=== PATIENT | female | born 1965 | race Caucasian/White ===

== ENCOUNTER → 2018-01-10 | Outpatient (CLI) | payer BC ==
[2018-01-10 17:32] LABS: T4, Free (Free Thyroxine) 1.06 ng/dL (0.78-2.19)
--- NOTE | 2018-01-10 17:45 | US ---
EXAMINATION TYPE: US thyroid st tissue head/neck DATE OF EXAM: 01/10/2018 COMPARISON: NONE CLINICAL HISTORY: E04.9 enlarged thyroid. Enlarged thyroid per doctor. GLAND SIZE: Right Lobe: 5.1 x 2.7 x 2.6 cm Overall Parenchyma: heterogenous Left Lobe: 5.1 x 1.3 x 2.0 cm Overall Parenchyma: homogeneous Isthmus Thickness: 0.6 cm NODULES RIGHT: # of nodules measured on right: 0 LEFT: # of nodules measured on left: 3 1. 0.8 X 0.6 x 0.5 cm hypoechoic solid nodule at the lower pole with well-defined margins. This no dule is taller than wide and shows intranodular vascularity. Prior size: No prior 2. 1.0 X 1.0 x 0.6 cm mixed nodule at the lower pole with well-defined margins. This nodule is tall er than wide and shows no intranodular vascularity. Prior size: No prior 3. 0.9 X 0.6 x 0.5 cm hypoechoic solid nodule at the mid pole with well-defined margins. This nodul e is taller than wide and shows no intranodular vascularity. Prior size: No prior ISTHMUS: # of nodules measured in the isthmus: 0 Bilateral neck scanned, no evidence of lymphadenopathy. Bilateral enlarged thyroid lobes. IMPRESSION: There are several nodules in the left thyroid lobe. No dominant thyroid mass. I have a low suspicion of malignancy.
== END | disposition home or self-care (01) ==
LOC: RADUSWWP 16:16
PROVIDERS: ATTEND Obstetrics & Gynecology
DX: E04.2 Nontoxic multinodular goiter (principal); E04.9 Nontoxic goiter, unspecified
CPT/HCPCS: 36415; 76536; 84439; 84443; 84479

== ENCOUNTER → 2018-10-26 | Outpatient (CLI) | payer BC ==
--- NOTE | 2018-10-27 14:46 | US ---
EXAMINATION TYPE: US thyroid st tissue head/neck DATE OF EXAM: 10/26/2018 COMPARISON: 01/10/2018 ultrasound thyroid CLINICAL HISTORY: E04.1 Thyroid Nodule. Follow up thyroid nodules GLAND SIZE: Right Lobe: 5.9 x 1.8 x 2.5 cm Overall Parenchyma: heterogenous Left Lobe: 5.7 x 1.5 x 2.1 cm Overall Parenchyma: heterogeneous Isthmus Thickness: 0.6 cm NODULES RIGHT: # of nodules measured on right: 1 1. 1.2 X 0.5 x 1.3 cm hypoechoic mixed nodule at the upper pole with well-defined margins. This nod ule is wider than tall and shows intranodular vascularity. Prior size: no previous LEFT: # of nodules measured on left: 3 1. 1.4 X 0.8 x 1.0 cm hypoechoic solid nodule at the lower pole with well-defined margins. This nod ule is wider than tall and shows intranodular vascularity. Prior size: 0.8 x 0.6 x 0.5 cm 2. 1.2 X 0.6 x 1.1 cm hypoechoic mixed nodule at the lower pole with well-defined margins. This nodu le is wider than tall and shows intranodular vascularity. Prior size: 1.0 x 1.0 x 0.6 cm 3. 0.9 X 0.5 x 0.7 cm hypoechoic solid nodule at the mid pole with well-defined margins. This nodule is wider than tall and shows intranodular vascularity. Prior size: 0.9 x 0.6 x 0.5 cm ISTHMUS: # of nodules measured in the isthmus: 0 Bilateral neck scanned, no evidence of lymphadenopathy. Enlarged heterogeneous gland with multiple bilateral nodules described above. IMPRESSION: 1. No identification of a 1.2 x 0.5 x 1.3 cm hypoechoic nodule right lobe thyroid. 2. Enlargement of the left lobe thyroid nodule lower pole. 3. Consider correlation with nuclear medicine thyroid scan.
== END | disposition home or self-care (01) ==
LOC: RADUSWWP 16:18
PROVIDERS: ATTEND Otolaryngology
DX: E04.1 Nontoxic single thyroid nodule (principal)
CPT/HCPCS: 76536

== ENCOUNTER 2018-11-19 11:59 | Observation (INO) | payer BC ==
[2018-11-19 12:05] VITALS: RESP 18
--- NOTE | 2018-11-19 12:32 | ED ---
General Adult HPI - General Chief complaint: Chest Pain Stated complaint: Chest pain Time Seen by Provider: 11/19/18 12:06 Source: patient, RN notes reviewed, old records reviewed Mode of arrival: wheelchair Limitations: no limitations - History of Present Illness Initial comments: 53-year-old female presenting for evaluation of left-sided chest pain. Patient's symptoms began 2 days prior, began as indigestion, epigastric pain, progressed to left-sided chest pain with radiation to the jaw. Patient denies significant dyspnea. Denies cough or fever. Patient has no known history of CAD, she does have family history of CAD. She is a current smoker. No history of diabetes or hypertension. - Related Data Home Medications Medication Instructions Recorded Confirmed Aspirin/Acetaminophen/Caffeine 1 tab PO BID PRN 11/19/18 11/19/18 [Excedrin Migraine Caplet] Allergies Allergy/AdvReac Type Severity Reaction Status Date / Time codeine AdvReac Nausea Verified 11/19/18 12:47 Review of Systems ROS Statement: Those systems with pertinent positive or pertinent negative responses have been documented in the HPI. ROS Other: All systems not noted in ROS Statement are negative. Past Medical History Past Medical History: No Reported History Additional Past Medical History / Comment(s): kidney stones History of Any Multi-Drug Resistant Organisms: None Reported Past Surgical History: Appendectomy, Breast Surgery Additional Past Surgical History / Comment(s): breast reduction Past Anesthesia/Blood Transfusion Reactions: No Reported Reaction Past Psychological History: No Psychological Hx Reported Smoking Status: Current every day smoker Past Alcohol Use History: Rare Past Drug Use History: None Reported - Past Family History Father Family Medical History: Respiratory Disorder Additional Family Medical History / Comment(s): pulmonary fibrosis Mother Family Medical History: Coronary Artery Disease (CAD) Additional Family Medical History / Comment(s): CABG 2 vessel General Exam Limitations: no limitations General appearance: alert, in no apparent distress Head exam: Present: atraumatic, normocephalic Eye exam: Present: normal appearance, PERRL ENT exam: Present: normal exam Neck exam: Present: normal inspection Respiratory exam: Present: normal lung sounds bilaterally. Absent: respiratory distress Cardiovascular Exam: Present: regular rate, normal rhythm GI/Abdominal exam: Present: soft. Absent: distended, tenderness, guarding Back exam: Present: normal inspection Neurological exam: Present: alert, oriented X3, CN II-XII intact. Absent: motor sensory deficit Psychiatric exam: Present: normal affect, normal mood Skin exam: Present: warm, dry, intact. Absent: cyanosis, diaphoretic Course Vital Signs 11/19/18 12:02 Temperature 97.9 F Pulse Rate 81 Respiratory 18 Rate Blood Pressure 151/75 O2 Sat by Pulse 97 Oximetry EKG Findings - EKG Comments: EKG Findings:: EKG: Normal sinus rhythm, rate of 82, WA interval 128, QRS duration 90, QTC 446, no ST segment changes Medical Decision Making - Medical Decision Making 53-year-old female presenting for evaluation of chest pain. EKG negative for ST segment elevation, no definitive signs of acute ischemia. Chest x-ray negative for cardiopulmonary disease. Normal CBC, normal CMP, d-dimer negative, initial troponin negative. Will be kept in observation for stroke cardiac enzymes, telemetry, and cardiology consultation. Case discussed with admitting physician, will accept. - Lab Data Result diagrams: 11/19/18 12:22 11/19/18 12:22 Lab Results 11/19/18 11/19/18 11/19/18 Range/Units 12:22 12:22 12:22 WBC 9.1 (3.8-10.6) k/uL RBC 5.05 (3.80-5.40) m/uL Hgb 14.8 (11.4-16.0) gm/dL Hct 45.5 (34.0-46.0) % MCV 90.2 (80.0-100.0) fL MCH 29.4 (25.0-35.0) pg MCHC 32.6 (31.0-37.0) g/dL RDW 13.5 (11.5-15.5) % Plt Count 252 (150-450) k/uL Neutrophils % 63 % Lymphocytes % 28 % Monocytes % 4 % Eosinophils % 3 % Basophils % 1 % Neutrophils # 5.7 (1.3-7.7) k/uL Lymphocytes # 2.5 (1.0-4.8) k/uL Monocytes # 0.4 (0-1.0) k/uL Eosinophils # 0.2 (0-0.7) k/uL Basophils # 0.1 (0-0.2) k/uL PT 10.0 (9.0-12.0) sec INR 0.9 (<1.2) APTT 25.0 (22.0-30.0) sec D-Dimer 0.31 (<0.60) mg/L FEU Sodium 141 (137-145) mmol/L Potassium 4.3 (3.5-5.1) mmol/L Chloride 107 (98-107) mmol/L Carbon Dioxide 25 (22-30) mmol/L Anion Gap 9 mmol/L BUN 19 H (7-17) mg/dL Creatinine 0.71 (0.52-1.04) mg/dL Est GFR (CKD-EPI)AfAm >90 (>60 ml/min/1.73 sqM) Est GFR (CKD-EPI)NonAf >90 (>60 ml/min/1.73 sqM) Glucose 103 H (74-99) mg/dL Calcium 10.5 H (8.4-10.2) mg/dL Magnesium 2.0 (1.6-2.3) mg/dL Total Bilirubin 0.6 (0.2-1.3) mg/dL AST 26 (14-36) U/L ALT 36 (9-52) U/L Alkaline Phosphatase 116 (38-126) U/L Troponin I (0.000-0.034) ng/mL NT-Pro-B Natriuret Pep pg/mL Total Protein 7.7 (6.3-8.2) g/dL Albumin 4.8 (3.5-5.0) g/dL Lipase 203 (23-300) U/L 11/19/18 11/19/18 Range/Units 12:22 12:22 WBC (3.8-10.6) k/uL RBC (3.80-5.40) m/uL Hgb (11.4-16.0) gm/dL Hct (34.0-46.0) % MCV (80.0-100.0) fL MCH (25.0-35.0) pg MCHC (31.0-37.0) g/dL RDW (11.5-15.5) % Plt Count (150-450) k/uL Neutrophils % % Lymphocytes % % Monocytes % % Eosinophils % % Basophils % % Neutrophils # (1.3-7.7) k/uL Lymphocytes # (1.0-4.8) k/uL Monocytes # (0-1.0) k/uL Eosinophils # (0-0.7) k/uL Basophils # (0-0.2) k/uL PT (9.0-12.0) sec INR (<1.2) APTT (22.0-30.0) sec D-Dimer (<0.60) mg/L FEU Sodium (137-145) mmol/L Potassium (3.5-5.1) mmol/L Chloride (98-107) mmol/L Carbon Dioxide (22-30) mmol/L Anion Gap mmol/L BUN (7-17) mg/dL Creatinine (0.52-1.04) mg/dL Est GFR (CKD-EPI)AfAm (>60 ml/min/1.73 sqM) Est GFR (CKD-EPI)NonAf (>60 ml/min/1.73 sqM) Glucose (74-99) mg/dL Calcium (8.4-10.2) mg/dL Magnesium (1.6-2.3) mg/dL Total Bilirubin (0.2-1.3) mg/dL AST (14-36) U/L ALT (9-52) U/L Alkaline Phosphatase (38-126) U/L Troponin I <0.012 (0.000-0.034) ng/mL NT-Pro-B Natriuret Pep 17 pg/mL Total Protein (6.3-8.2) g/dL Albumin (3.5-5.0) g/dL Lipase (23-300) U/L Disposition Clinical Impression: Chest pain Disposition: ADMITTED IP TO THIS [facility] Condition: Stable Is patient prescribed a controlled substance at d/c from ED?: No Referrals: None,Stated [Primary Care Provider] - 1-2 days Decision to Admit Reason: Admit from EC Decision Date: 11/19/18 Decision Time: 14:20
[2018-11-19 12:41] LABS: Basophils # (A) 0.1 k/uL (0-0.2); Basophils % (A) 1 %; Eosinophils # (A) 0.2 k/uL (0-0.7); Eosinophils % (A) 3 %; HCT 45.5 % (34.0-46.0); HGB 14.8 gm/dL (11.4-16.0); Lymphocytes # (A) 2.5 k/uL (1.0-4.8); Lymphocytes % (A) 28 %; MCH 29.4 pg (25.0-35.0); MCHC 32.6 g/dL (31.0-37.0); MCV 90.2 fL (80.0-100.0); Mean Platelet Volume 8.3; Monocytes # (A) 0.4 k/uL (0-1.0); Monocytes % (A) 4 %; Neutrophils # (A) 5.7 k/uL (1.3-7.7); Neutrophils % (A) 63 %; Platelet Count 252 k/uL (150-450); RBC 5.05 m/uL (3.80-5.40); RDW 13.5 % (11.5-15.5); WBC 9.1 k/uL (3.8-10.6)
[2018-11-19 12:51] LABS: ALT 36 U/L (9-52); AST 26 U/L (14-36); Albumin 4.8 g/dL (3.5-5.0); Alkaline Phosphatase 116 U/L (38-126); Anion Gap 9 mmol/L; Blood Urea Nitrogen 19 mg/dL (7-17); Calcium 10.5 mg/dL (8.4-10.2); Carbon Dioxide 25 mmol/L (22-30); Chloride 107 mmol/L (98-107); Glucose 103 mg/dL (74-99); Lipase 203 U/L (23-300); Potassium 4.3 mmol/L (3.5-5.1); Sodium 141 mmol/L (137-145); Total Bilirubin 0.6 mg/dL (0.2-1.3); Total Protein 7.7 g/dL (6.3-8.2)
[2018-11-19 12:56] LABS: D-Dimer 0.31 mg/L FEU (<0.60); INR 0.9 (<1.2)
--- NOTE | 2018-11-19 13:22 | XR ---
EXAMINATION TYPE: XR chest 2V DATE OF EXAM: 11/19/2018 COMPARISON: Chest x-ray 04/16/2015 HISTORY: Chest pain TECHNIQUE: Frontal and lateral views of the chest are obtained. FINDINGS: There are cardiac leads. There is no focal air space opacity, pleural effusion, or pneumoth orax seen. The cardiac silhouette size is within normal limits. The osseous structures are intact. IMPRESSION: No acute cardiopulmonary process.
[2018-11-19] MEDS ORDERED: ASPIRIN 325 MG TAB PO STA (13:30)
[2018-11-19] MEDS ORDERED: FAMOTIDINE 20 MG/2 ML VIAL IV STA (13:30)
[2018-11-19] MEDS ORDERED: ACETAMINOPHEN TAB 325 MG TAB PO PRN (14:16)
[2018-11-19] MEDS ORDERED: NALOXONE 0.4 MG/ML 1 ML VIAL IV PRN (14:16)
[2018-11-19] MEDS ORDERED: ONDANSETRON 4 MG/2 ML VIAL IVP PRN (14:16)
[2018-11-19] MEDS ORDERED: IBUPROFEN 400 MG TAB PO PRN (14:16)
[2018-11-19 15:44] VITALS: BMI 30.1
[2018-11-19] MEDS: SODIUM CHLORIDE 0.9% 1,000 ML IV SCH (17:11)
--- NOTE | 2018-11-19 23:39 | P.HPIM ---
History of Present Illness H&P Date: 11/19/18 Chief Complaint: Chest pain Patient is a 53-year-old female with a known history of renal stones, nicotine addiction came to ER with complaints of chest pain and heartburn on Tuesday night about 2 days back acidosis with nausea and since then patient has been having on and off chest pain lasting few minutes. Today morning when she woke up she felt chest pressure, pain and jaw pain when she woke up in the morning today. Pain is associated with some shortness of breath. Patient today about 6 Tums seems to relieve her pain. Otherwise patient denied any recent illnesses. No cough or sputum production. No nausea vomiting or abdominal pain. No headache or dizziness or lightheadedness. Patient does smoke 1 pack per day. Mother has history of coronary artery bypass graft. Patient does take Excedrin for headache every other day. EKG showed normal sinus rhythm Chest x-ray showed no acute cardio pulmonary process Troponin 1 negative Patient says that she had negative stress test in 2014 Review of Systems Constitutional: Patient denies any fever or chills . No generalized weakness or weight loss. Abdomen: Patient denied nausea vomiting and diarrhea and abdominal pain. Cardiovascular: Patient does have chest pain with mild shortness of breath. No leg swelling. Respiratory: patient denied any cough is from production. No shortness of breath Neurologic: Patient denied any numbness or tingling headache. Musculoskeletal: Patient denies any complaints of joint swelling or deformity. Skin: Negative Psychiatric: Negative Endocrine: No heat or cold intolerance. No recent weight gain. Genitourinary: No dysuria or hematuria. All other 14 point ROS negative except the above Past Medical History Past Medical History: No Reported History Additional Past Medical History / Comment(s): kidney stones History of Any Multi-Drug Resistant Organisms: None Reported Past Surgical History: Appendectomy, Breast Surgery Additional Past Surgical History / Comment(s): breast reduction Past Anesthesia/Blood Transfusion Reactions: No Reported Reaction Past Psychological History: No Psychological Hx Reported Smoking Status: Current every day smoker Past Alcohol Use History: Rare Past Drug Use History: None Reported - Past Family History Father Family Medical History: Respiratory Disorder Additional Family Medical History / Comment(s): pulmonary fibrosis Mother Family Medical History: Coronary Artery Disease (CAD) Additional Family Medical History / Comment(s): CABG 2 vessel Medications and Allergies Home Medications Medication Instructions Recorded Confirmed Type Aspirin/Acetaminophen/Caffeine 1 tab PO BID PRN 11/19/18 11/19/18 History [Excedrin Migraine Caplet] Allergies Allergy/AdvReac Type Severity Reaction Status Date / Time codeine AdvReac Nausea Verified 11/19/18 12:47 Physical Exam Vitals: Vital Signs Temp Pulse Pulse Resp BP BP Pulse Ox 11/19/18 15:53 18 11/19/18 15:20 97.8 F 78 16 146/76 95 11/19/18 15:07 97.9 F 81 18 148/83 97 11/19/18 12:02 97.9 F 81 18 151/75 97 Intake and Output 11/19/18 11/19/18 11/19/18 06:59 14:59 22:59 Other: Voiding Method Toilet Weight 92.533 kg PHYSICAL EXAMINATION: Patient is lying in the bed comfortably, no acute distress, awake alert and oriented.. HEENT: Normocephalic. Neck is supple. Pupils reactive. Nostrils clear. Oral cavity is moist. Ears reveal no drainage. Neck reveals no JVD, carotid bruits, or thyromegaly. CHEST EXAMINATION: Trachea is central. Symmetrical expansion. Lung thompson clear to auscultation and percussion. CARDIAC: Normal S1, S2 with no gallops. No murmurs ABDOMEN: Soft. Bowel sounds normal. No organomegaly. No abdominal bruits. Extremities: reveal no edema. No clubbing or cyanosis Neurologically awake, alert, oriented x3 with well-coordinated movements. No focal deficits noted Skin: No rash or skin lesions. Psychiatric: Coperative. Nonsuicidal Musculoskeletal: No joint swelling or deformity. Normal range of motion. Results CBC & Chem 7: 11/19/18 12:22 11/19/18 12:22 Labs: Abnormal Lab Results - Last 24 Hours (Table) 11/19/18 Range/Units 12:22 BUN 19 H (7-17) mg/dL Glucose 103 H (74-99) mg/dL Calcium 10.5 H (8.4-10.2) mg/dL Thrombosis Risk Factor Assmnt - DVT/VTE Prophylaxis DVT/VTE Prophylaxis: Pharmacologic Prophylaxis ordered - Choose All That Apply Any of the Below Risk Factors Present?: Yes Each Factor Represents 1 point: Age 41-60 years, Obesity (BMI >25) Other Risk Factors: No Other congenital or acquired thrombophilia - If yes, enter type in comment: No Thrombosis Risk Factor Assessment Total Risk Factor Score: 2 Thrombosis Risk Factor Assessment Level: Low Risk Assessment and Plan Assessment: Atypical chest pain. Rule out acute kidney syndrome. Pain likely GI related. Nicotine addiction History of renal stones History of breast reduction surgery and Appendectomy DVT prophylaxis Plan: Patient will be continued on telemetry monitoring. Initial EKG and troponin neg ative. Will hold NSAID's. Patient was started on Protonix. Cardiology was consulted. Further recommendations based on the clinical course. Smoking cessation has been counseled extensively. Time with Patient: Greater than 30
--- NOTE | 2018-11-20 07:49 | CONS ---
CONSULTATION Mrs. Beard is a 53-year-old female with no prior documented history of coronary artery disease who presented with symptoms of chest discomfort. She has been having discomfort on and off for the last couple days. Subsequently yesterday started to have jaw discomfort and because of that came into the emergency room. The discomfort in the jaw woke her up from sleep. She took some antacid with some improvement. She has no clear change in her pattern, although she has history of chronic dyspnea on exertion related to her chronic tobacco use. She has no PND, orthopnea, or peripheral edema. No dizziness, palpitation, or syncope. She was in the hospital in 2014 and had no evidence of ischemia by stress echocardiogram. She has no recent cardiac workup since. She has a history of chronic tobacco use. She is nondiabetic, not hypertensive. MEDICATIONS: Her medications at home include Excedrin. REVIEW OF SYSTEMS: RESPIRATORY SYSTEM: She has chronic dyspnea on exertion related to her chronic tobacco use. GI SYSTEM: No recent GI bleeding. No peptic ulcer disease. SYSTEM: No dysuria or hematuria. NERVOUS SYSTEM: No stroke or seizure. PHYSICAL EXAMINATION: She is a 53-year-old female, alert, oriented, in no apparent distress. Blood pressure 119/75 with the heart rate in the 70s. HEAD: Normocephalic. EYES: Sclerae anicteric. NECK: Good upstroke. No bruit. No jugular venous distention. LUNGS: Clear to auscultation. HEART: Regular rate and rhythm. S1, S2. No S3. No S4. No murmur or rub. ABDOMEN: Soft, nontender. Positive bowel sounds. No organomegaly. EXTREMITIES: No edema. Intact distal pulses. LAB DATA: Lab data revealed troponin less than 0.012 for 3 samples. BUN and creatinine 19 and 0.71. Hemoglobin of 14.8. EKG reveals sinus mechanism, normal axis and intervals with poor R-wave progression. No acute ST-segment changes. Chest x-ray shows no acute infiltrate. IMPRESSION: 1. Chest discomfort has atypical features for ischemic heart disease probably noncardiac. 2. Chronic tobacco use. RECOMMENDATION: In view of her presentation history, I recommend proceeding with a stress echocardiogram to assess her status and guide her treatment. The rationale behind the plan and the importance of smoking cessation was discussed with the patient who is in full understanding and agreement. Thank you for this consult. We will follow with you. MMODL / IJN: [id number] /
[2018-11-20 08:52] LABS: Anion Gap 6 mmol/L; Blood Urea Nitrogen 14 mg/dL (7-17); Calcium 9.5 mg/dL (8.4-10.2); Carbon Dioxide 26 mmol/L (22-30); Chloride 109 mmol/L (98-107); Glucose 97 mg/dL (74-99); Potassium 4.4 mmol/L (3.5-5.1); Sodium 141 mmol/L (137-145)
[2018-11-20] MEDS ORDERED: NICOTINE 14MG/24HR PATCH TRANSDERM SCH (09:00)
[2018-11-20] MEDS ORDERED: PANTOPRAZOLE 40 MG/10 ML VIAL IV SCH (09:00)
--- NOTE | 2018-11-20 10:40 | ECHOF ---
Referral Reason:cp MEASUREMENTS -------- HEIGHT: 175.3 cm WEIGHT: 92.5 kg BP: 108/69 RVIDd: 2.6 cm (< 3.3) IVSd: 1.2 cm (0.6 - 1.1) LVIDd: 3.8 cm (3.9 - 5.3) LVPWd: 1.1 cm (0.6 - 1.1) IVSs: 1.3 cm LVIDs: 2.7 cm LVPWs: 1.3 cm LA Diam: 3.0 cm (2.7 - 3.8) LAESV Index (A-L): 19.90 ml/m Ao Diam: 2.9 cm (2.0 - 3.7) AV Cusp: 1.9 cm (1.5 - 2.6) MV EXCURSION: 12.148 mm (> 18.000) MV EF SLOPE: 60 mm/s (70 - 150) EPSS: 0.3 cm MV E Jeremy: 0.95 m/s MV DecT: 249 ms MV A Jeremy: 0.92 m/s MV E/A Ratio: 1.03 FINDINGS -------- Sinus rhythm. This was a technically good study. The left ventricular size is normal. There is borderline concentric left ventricular hypertrophy. Overall left ventricular systolic function is normal with, an EF between 55 - 60 %. The diastolic filling pattern is normal for the age of the patient 9.64. The right ventricle is normal in size. Normal LA size by volume 22+/-6 ml/m2. The right atrial size is normal. The aortic valve is trileaflet, and appears structurally normal. No aortic stenosis or regurgitation. The mitral valve is normal. There is trace mitral regurgitation. The tricuspid valve appears structurally normal. Trace tricuspid regurgitation present. Trace/mild (physiologic) pulmonic regurgitation. The aortic root size is normal. Normal inferior vena cava with normal inspiratory collapse consistent with estimated right atrial pre ssure of 5 mmHg. There is no pericardial effusion. CONCLUSIONS -------- 1. Sinus rhythm. 2. This was a technically good study. 3. The left ventricular size is normal. 4. There is borderline concentric left ventricular hypertrophy. 5. Overall left ventricular systolic function is normal with, an EF between 55 - 60 %. 6. Normal LA size by volume 22+/-6 ml/m2. 7. The aortic valve is trileaflet, and appears structurally normal. No aortic stenosis or regurgitati on. 8. There is trace mitral regurgitation. 9. The tricuspid valve appears structurally normal. 10. Trace tricuspid regurgitation present. 11. Trace/mild (physiologic) pulmonic regurgitation. 12. The aortic root size is normal. 13. Normal inferior vena cava with normal inspiratory collapse consistent with estimated right atrial pressure of 5 mmHg. 14. There is no pericardial effusion. BUSINESS BANKING OFFICER: Chanel Grady RDCS
[2018-11-20 11:25] VITALS: TEMP 98.1
[2018-11-20] MEDS: SODIUM CHLORIDE 0.9% 1,000 ML IV SCH (11:55)
--- NOTE | 2018-11-20 12:04 | ECHOS ---
STRESS ECHOCARDIOGRAM INDICATIONS: Chest pain. MEDICATIONS: Excedrin. BASELINE HEART RATE: 80 BASELINE BLOOD PRESSURE: 125/84 MAXIMUM HEART RATE: 151 MAXIMUM BLOOD PRESSURE: 172/41 85% MPHR: 142 100% MPHR: 167 METS: 10.3 MAXIMUM STAGE REACHED: III TOTAL EXERCISE TIME: 9:00 CLINICAL INFORMATION: Baseline rhythm is sinus mechanism rate of 80, normal axis and intervals, normal echocardiogram, baseline blood pressure 125/84 mmHg. Patient exercised on Juan protocol for 9 minutes reaching peak rate 151 beats per minute which is equal to 90% maximum predicted heart rate. Peak blood pressure 172/41 mmHg. Test was terminated secondary to fatigue. There was no chest pain. Electrocardiograph monitoring revealed rare-related left bundle branch block that resolved in recovery. FINDINGS: Baseline echocardiogram revealed normal wall thickening and motion at peak exercise. There was normal wall motion augmentation with no hypokinesis or dyskinesis. CONCLUSION: 1. Good exercise tolerance with nondiagnostic electrocardiograph stress testing secondary to rate-related left bundle branch block. 2. Normal stress echocardiogram with no evidence of stress-induced ischemia. MMODL / IJN: [id number] /
[2018-11-20 15:53] VITALS: BP 114/68; PULSE 82
== END 2018-11-20 16:25 | disposition home or self-care (01) ==
LOC: EC 11:59 → 1SOBS 14:16
PROVIDERS: ADMIT Internal Medicine; ATTEND Internal Medicine
DX: R07.89 Other chest pain (principal); K30 Functional dyspepsia; R11.0 Nausea; R68.84 Jaw pain; R06.02 Shortness of breath; R06.09 Other forms of dyspnea; F17.210 Nicotine dependence, cigarettes, uncomplicated; E66.9 Obesity, unspecified; Z68.30 Body mass index [BMI] 30.0-30.9, adult; Z98.890 Other specified postprocedural states; Z87.442 Personal history of urinary calculi; Z88.5 Allergy status to narcotic agent; Z82.49 Family history of ischemic heart disease and other diseases of the circulatory system; Z83.6 Family history of other diseases of the respiratory system
CPT/HCPCS: 96375; 96374; 99285; 36415; 93005; 93306; 93351; 85379; 83880; 80053; 80048; 83690; 83735; 84484 ×2; 85025; 85610; 85730; 71046; G0378 ×2; C9113

== ENCOUNTER → 2019-07-06 | Outpatient (CLI) | payer BC ==
--- NOTE | 2019-07-08 20:37 | US ---
EXAMINATION TYPE: US thyroid st tissue head/neck DATE OF EXAM: 07/06/2019 COMPARISON: NONE CLINICAL HISTORY: 53-year-old female E04.1 thyroid nodule. TECHNIQUE: Multiple sonographic images of the thyroid gland are obtained. FINDINGS: GLAND SIZE: Right Lobe: 6.3 x 2.2 x 2.1 cm Overall Parenchyma: homogenous Left Lobe: 6.1 x 1.9 x 2.0 cm Overall Parenchyma: homogeneous Isthmus Thickness: 0.4 cm NODULES RIGHT: # of nodules measured on right: 2 1. 8 x 8 x 4 mm hypoechoic mixed nodule at the mid pole. This nodule is wider than tall and shows no intranodular vascularity. Prior size: 8 x 7 x 4 mm as remeasured on the prior study. 2. 0.6 X 0.6 x 0.6 cm cyst at the mid pole with well-defined margins. This nodule is wider than radha l and shows no intranodular vascularity. Prior size: 5 x 5 x 5 mm prior appears as a hypoechoic nodule. LEFT: # of nodules measured on left: 3 1. 1.3 X 0.9 x 0.9 cm septated cyst at the mid-lower pole with well-defined margins. This nodule i s taller than wide and shows no intranodular vascularity. Prior size: 1.4 x 0.8 x 1.0 cm 2. 0.6 X 0.4 x 0.6 cm hypoechoic solid nodule at the lower pole with well-defined margins. This nod ule is wider than tall and shows no intranodular vascularity. Prior size: 1.2 x 0.6 x 1.1 cm 3. 0.5 X 0.5 x 0.4 cm hypoechoic solid nodule at the upper/lateral pole with well-defined margins. This nodule is wider than tall and shows no intranodular vascularity. Prior size: 0.9 x 0.5 x 0.7 cm ISTHMUS: # of nodules measured in the isthmus: 0 Bilateral neck scanned, no evidence of lymphadenopathy. IMPRESSION: Findings suggest multinodular goiter. Largest nodule measures 1.3 cm and appears as a septated cyst a t the left mid to lower pole. There are additional solid nodules measuring up to 8 mm not significant ly increased in size from 11/24/2018
== END | disposition home or self-care (01) ==
LOC: RADUSWWP 16:08
PROVIDERS: ATTEND Otolaryngology
DX: E04.2 Nontoxic multinodular goiter (principal)
CPT/HCPCS: 76536

== ENCOUNTER → 2020-02-11 | Outpatient (CLI) | payer BC ==
--- NOTE | 2020-02-11 13:35 | US ---
EXAMINATION TYPE: US thyroid st tissue head/neck DATE OF EXAM: 02/11/2020 COMPARISON: 07/06/2019 CLINICAL HISTORY: Thyroid nodule E04.1. GLAND SIZE: Right Lobe: 6.1 x 1.8 x 2.3 cm Overall Parenchyma: homogenous Left Lobe: 6.1 x 1.9 x 2.2 cm Overall Parenchyma: homogeneous Isthmus Thickness: 0.5 cm NODULES RIGHT: # of nodules measured on right: 1. 0.6 X 0.3 x 0.7 cm hypoechoic solid nodule at the upper pole with well-defined margins. This no dule is wider than tall and shows intranodular vascularity. Prior size: 0.8 x 0.8 x 0.4 cm 2. 0.6 X 0.4 x 0.4 cm anechoic cystic nodule at the mid pole with well-defined margins. This nodule is wider than tall and shows no intranodular vascularity. Prior size: 0.6 x 0.6 x 0.6 cm LEFT: # of nodules measured on left: 1. 1.2 X 0.8 x 1.0 cm anechoic cystic nodule at the mid pole with well-defined margins. This nodul e is taller than wide and shows no intranodular vascularity. Prior size: 1.3 x 0.9 x 0.9 cm 2. 0.8 X 0.4 x 0.6 cm anechoic cystic nodule at the mid pole with well-defined margins. This nodule is taller than wide and shows no intranodular vascularity. Prior size: 0.6 x 0.4 x 0.6 cm ISTHMUS: # of nodules measured in the isthmus: 0 Bilateral neck scanned, no evidence of lymphadenopathy. IMPRESSION: Bilateral cystic thyroid nodules in a solid 1.2 cm left thyroid nodule. No significant gr owth of any of the measured nodules. Findings again suggest a multinodular goiter.
== END | disposition home or self-care (01) ==
LOC: RADUSWWP 12:55
PROVIDERS: ATTEND Otolaryngology
DX: E04.2 Nontoxic multinodular goiter (principal); R22.0 Localized swelling, mass and lump, head
CPT/HCPCS: 76536

== ENCOUNTER → 2021-04-10 | Outpatient (CLI) | payer BC ==
--- NOTE | 2021-04-10 14:16 | US ---
EXAMINATION TYPE: US thyroid st tissue head/neck DATE OF EXAM: 04/10/2021 COMPARISON: CLINICAL HISTORY: E04.1 thyroid nodule. Follow up thyroid GLAND SIZE: Right Lobe: 5.9 x 2.3 x 2.1 cm Overall Parenchyma: heterogenous Left Lobe: 5.7 x 2.2 x 1.9 cm Overall Parenchyma: heterogeneous Isthmus Thickness: 0.5 cm NODULES RIGHT: # of nodules measured on right: 3 1. 0.8 X 0.8 x 0.4 cm, upper medial, solid or almost completely solid, hypoechoic nodule, which is wider than tall, with smooth margins, without echogenic foci. TR4 Prior size: 0.6 x 0.3 x 0.7 cm 2. 0.4 X 0.4 x 0.3 cm, mid , cystic or almost completely cystic, anechoic nodule, which is wider th an tall, with smooth margins, without echogenic foci. Prior size: 0.6 x 0.4 x 0.4 cm 3. 0.5 X 0.4 x 0.3 cm, mid , mixed cystic and solid, hypoechoic nodule, which is wider than tall, w ith smooth margins, without echogenic foci. Prior size: no prior LEFT: # of nodules measured on left: 2 1. 0.7 X 0.5 x 0.4 cm, mid lateral, mixed cystic and solid, hypoechoic nodule, which is wider than tall, with smooth margins, without echogenic foci. Prior size: 0.8 x 0.4 x 0.6 cm 2. 0.6 X 0.8 x 0.4 cm, mid , mixed cystic and solid, hypoechoic nodule, which is wider than tall, with smooth margins, without echogenic foci. Prior size: 1.2 x 0.8 x 1.0 cm ISTHMUS: # of nodules measured in the isthmus: 0 Bilateral neck scanned, no evidence of lymphadenopathy. IMPRESSION: 1. Bilateral subcentimeter nodules largely stable from comparison. 2. One subcentimeter nodule with minimal enlargement within the right lobe thyroid. 2017 ACR TI-RADS LEVEL: TR-RADS 4 - Moderately Suspicious: Follow if > 1 cm, FNA if > 1.5 cm *Highest TI-RADS level nodule reported
== END | disposition home or self-care (01) ==
LOC: RADUSWWP 10:54
PROVIDERS: ATTEND Otolaryngology
DX: E04.1 Nontoxic single thyroid nodule (principal)
CPT/HCPCS: 76536

== ENCOUNTER → 2023-02-15 | Outpatient (CLI) | payer BC ==
--- NOTE | 2023-02-16 19:00 | MM ---
Reason for Exam: Screening (asymptomatic). Last mammogram was performed 2 year(s) and 6 month(s) ago. Patient History: Menarche at age 13. First Full-Term at age 21. 2005, Bilateral Reduction. Excisional Biopsy on the Right side. Maternal grandmother had breast cancer. Niece had breast cancer, age 21. Last menstrual period: Risk Values: Karen 5 year model risk: 1.4%. NCI Lifetime model risk: 8.3%. Prior Study Comparison: 12/30/1993 Screening Mammogram, Unknown. 11/26/2003 Bilateral Special View Mammogram, [facility]. 12/08/2017 Bilateral MG 3D screening mammo w/cad, [facility]. 03/05/2019 Bilateral MG 3D screening mammo w/cad, [facility]. 08/14/2020 Bilateral MG 3D screening mammo w/cad, [facility]. Tissue Density: There are scattered fibroglandular densities. Findings: Analyzed By CAD. Pattern appears symmetrical and stable. No significant interval change is evident. Benign calcifications are present bilaterally. No suspicious groups of microcalcifications, spiculated or lobular masses, architectural distortion or other secondary signs of malignancy are mammographically apparent. Overall Assessment: Benign, BI-RAD 2 Management: Screening Mammogram of both breasts in 1 year. A negative mammogram report should not preclude additional follow up of suspicious palpable abnormalities. Patient should continue monthly self breast exam. A clinical breast exam by your physician is recommended on an annual basis and results should be correlated with mammographic findings. Electronically signed and approved by: Froy Ryder D.O. Radiologis
== END | disposition home or self-care (01) ==
LOC: RADMAMWWP 16:15
PROVIDERS: ATTEND Family Medicine
DX: Z12.31 Encounter for screening mammogram for malignant neoplasm of breast (principal); Z80.3 Family history of malignant neoplasm of breast
CPT/HCPCS: 77063; 77067

== ENCOUNTER → 2024-03-07 | Outpatient (CLI) | payer BC ==
--- NOTE | 2024-03-07 11:34 | US ---
EXAMINATION TYPE: US thyroid st tissue head/neck DATE OF EXAM: 03/07/2024 COMPARISON: Multiple thyroid ultrasounds with most recently 04/10/2021 CLINICAL INDICATION: Female, 58 years old with history of E04.1 THYROID NODULE; Patient denies any ch anges from prior GLAND SIZE: Right Lobe: 6.2 x 1.9 x cm Overall Parenchyma: homogeneous Left Lobe: 5.4 x 1.7 x cm Overall Parenchyma: homogeneous Isthmus Thickness: 0.4 cm NODULES RIGHT: # of nodules measured on right: 2 1. 1.1 X 0.5 x 0.8 cm, upper medial, solid or almost completely solid, hypoechoic nodule, which is wider than tall, with smooth margins, without echogenic foci. TR 4. Prior size: 0.8 x 0.4 x 0.8 cm 2. 0.9 X 0.5 x 0.8 cm, mid medial, spongiform, isoechoic nodule, which is wider than tall, with smo oth margins, without echogenic foci. TR 1. Prior size: ? Not seen on prior 3. Hypoechoic / cystic areas seen on prior noted. LEFT: # of nodules measured on left: 1. 0.8 X 0.6 x 0.6 cm, mid lateral, solid or almost completely solid, hypoechoic nodule, which is w ider than tall, with smooth margins, without echogenic foci. Stable TR 4. Prior size: 0.7 x 0.4 x 0.5 cm 2. Hypoechoic area noted upper pole 3. 0.7 X 0.5 x 0.8 cm, lower medial, spongiform, isoechoic nodule, which is wider than tall, with i ll-defined margins, without echogenic foci. TR 1. Prior size:Not seen on prior ISTHMUS: # of nodules measured in the isthmus: 1 1. 1.0 X 0.6 x 0.7 cm solid or almost completely solid, hypoechoic nodule, which is wider than tall , with ill-defined margins, without echogenic foci. TR 4. Prior size: Not seen on prior Bilateral neck scanned, no evidence of lymphadenopathy. IMPRESSION: Multinodular goiter redemonstrated. Marginal increase in size of right thyroid lobe TR 4 1.1 cm nodul e. Additional small nodules are identified which were not definitively visualized on prior examinatio n. Follow-up ultrasound in one year is recommended. ACR TI-RADS LEVEL: TR-RADS 4 - Moderately Suspicious: Follow if > 1 cm, FNA if > 1.5 cm *Highest TI-RADS level nodule reported
--- NOTE | 2024-03-10 17:58 | MM ---
Reason for Exam: Screening (asymptomatic). Last mammogram was performed 1 year(s) and 1 month(s) ago. Patient History: Menarche at age 13. First Full-Term at age 21. Postmenopausal. 2004, Bilateral Reduction. Excisional Biopsy on the Right side. Maternal grandmother had breast cancer. Niece had breast cancer, age 21. Risk Values: Karen 5 year model risk: 1.4%. NCI Lifetime model risk: 8.1%. Prior Study Comparison: 03/05/2019 Bilateral MG 3D screening mammo w/cad, [facility]. 08/14/2020 Bilateral MG 3D screening mammo w/cad, [facility]. 02/15/2023 Bilateral MG 3D screening mammo w/cad, [facility]. Tissue Density: The breasts are almost entirely fatty. Findings: Analyzed By CAD. There is no suspicious group of microcalcifications or new suspicious mass in either breast. Overall Assessment: Negative, BI-RAD 1 Management: Screening Mammogram of both breasts in 1 year. . Patient should continue monthly self-breast exams. A clinical breast exam by your physician is recommended on an annual basis. This exam should not preclude additional follow-up of suspicious palpable abnormalities. Note on Karen scores and lifetime risk: 1. A Karen score greater than 3% is considered moderate risk. If this is the case, consider specialist referral to assess eligibility for a risk reducing agent. 2. If overall lifetime risk for the development of breast cancer is 20% or higher, the patient may qualify for future screening with alternating mammogram and breast MRI. Electronically signed and approved by: Kavitha Monson M.D. Radiologist
== END | disposition home or self-care (01) ==
LOC: RADCTMAIN 08:57
PROVIDERS: ATTEND Family Medicine
DX: Z12.2 Encounter for screening for malignant neoplasm of respiratory organs (principal); E04.2 Nontoxic multinodular goiter; Z78.0 Asymptomatic menopausal state; Z80.3 Family history of malignant neoplasm of breast; Z87.891 Personal history of nicotine dependence
CPT/HCPCS: 71271; 76536; 77063; 77067

== ENCOUNTER → 2024-03-12 | Outpatient (CLI) | payer BC ==
--- NOTE | 2024-03-12 12:20 | CA ---
Lexiscan Nuclear Stress Test Report Name: Beny Beard Exam Date: 03/12/2024 10:22 Exam Location: [place] [facility] Ht (in): 68 Wt (lb): 185 BSA: 1.98 Ordering Phys: Francie Marlow MD Referring Phys: Berta Sharpe Technologist: Jerry French Age: 58 Gender: F : 1965 Procedure CPT: Indications: I44.7 LEFT BUNDLE-BRANCH BLOCK, UNSPECIFIED ICD-10 Codes: Patient History: Medications: LIPITOR, DOXYCLICL, MAUNJORO Meds past 24 hrs: Pretest Chest Pain: STRESS TEST Lexiscan Protocol Exercise Duration (min:sec): 02:[address] Depressions (mm): Angina Score: Martínez Score: Resting HR (bpm): 81 Peak HR (bpm): 109 Resting BP (mmHg): 113 / 85 Peak BP (mmHg): 125 / 79 MPHR: 162 Target HR: 138 % MPHR: 67 METS: 1.0 Total Dose: Peak Dose: Atropine: Double Product: 84597 BP Response: Stress Termination: Completion of Infusion Stress Symptoms: NO SYMPTOMS Stress Summary: ECG ANALYSIS Resting ECG: Stress ECG: CONCLUSIONS At baseline EKG showed normal sinus rhythm, normal axis, left bundle branch block. Patient recieved IV infusion of Lexiscan 0.4mg and at peak infusion EKG showed no significant change from baseline. Conclusions: 1. Nonspecific stress EKG portion secondary baseline EKG abnormalities. 2. Nuclear imaging to be reported separately. Dr. Joni Connolly DO (Electronically Signed) Final Date: 12 March 2024 12:19
--- NOTE | 2024-03-12 12:24 | NM ---
EXAMINATION TYPE: NM stress lexiscan cardiolite DATE OF EXAM: 03/12/2024 COMPARISON: NONE CLINICAL INDICATION: Female, 58 years old with history of I44.7 LEFT BUNDLE-BRANCH BLOCK, UNSPECIFIED ; TECHNIQUE: After the intravenous administration of 10.1 mCi Tc 99m Sestamibi - Cardiolite resting SP ECT images acquired 45 minutes post injection. The patient received 0.4mg Lexiscan, 24.5 mCi Tc 99m Sestamibi - Stress images obtained [address] injection FINDINGS: Review of stress and rest SPECT images demonstrates moderate-sized fixed perfusion defect along the m id to basal inferoseptal wall which is more pronounced on rest suggesting attenuation artifact. No di stinct reversibility is otherwise seen. Gated analysis shows normal wall motion with an estimated lef t ventricular ejection fraction of 66 %. TID is calculated upper limits of normal at 1.14. IMPRESSION: Either old inferoseptal wall infarct versus prominent attenuation artifact. The latter is favored. Cl inically correlate. No discrete reversibility is seen.
== END | disposition home or self-care (01) ==
LOC: RADNMMAIN 07:58
PROVIDERS: ATTEND Family Medicine
DX: I44.7 Left bundle-branch block, unspecified (principal)
CPT/HCPCS: 93017; 78452; A9500

== ENCOUNTER → 2025-03-20 | Outpatient (CLI) | payer BC ==
--- NOTE | 2025-03-20 13:22 | US ---
EXAMINATION TYPE: US thyroid st tissue head/neck DATE OF EXAM: 03/20/2025 COMPARISON: US 03/07/2024 CLINICAL INDICATION: Female, 59 years old with history of E041 THYROID NODULE; Thyroid nodule follow- up TECHNIQUE: Grayscale and color Doppler imaging of the thyroid gland. FINDINGS: GLAND SIZE: Right Lobe: 4.9 x 1.9 x 1.8 cm Overall Parenchyma: homogeneous Left Lobe: 4.9 x 1.8 x 1.8 cm Overall Parenchyma: homogeneous Isthmus Thickness: 0.4 cm NODULES RIGHT: # of nodules measured on right: 1 Multiple subcentimeter nodules seen on the right, the largest described below: 1. 0.9 X 0.5 x 0.7 cm, upper medial, Prior size: 1.1 x 0.5 x 0.8 cm TIRADS Score: 4 TIRADS Category 4 Composition: Solid or almost completely solid (2 points). Echogenicity: Hypoechoic (2 points). Shape: Wider than tall (0 points). Margin: Smooth (0 points). Echogenic foci: None or large comet-tail artifacts (0 points) Recommendation: If >1.5cm: FNA; If >1cm: Follow up at 1,2, 3,5 years LEFT: # of nodules measured on left: 2 1. 0.7 X 0.5 x 0.6 cm, lower lateral, Prior size: 0.8 x 0.6 x 0.6 cm TIRADS Score: 4 TIRADS Category 4 Composition: Solid or almost completely solid (2 points). Echogenicity: Hypoechoic (2 points). Shape: Wider than tall (0 points). Margin: Smooth (0 points). Echogenic foci: None or large comet-tail artifacts (0 points) Recommendation: If >1.5cm: FNA; If >1cm: Follow up at 1,2, 3,5 years 2. 0.6 X 0.3 x 0.5 cm, upper lateral, Prior size: 0.6 x 0.3 x 0.5 cm TIRADS Score: 4 TIRADS Category 4 Composition: Solid or almost completely solid (2 points). Echogenicity: Hypoechoic (2 points). Shape: Wider than tall (0 points). Margin: Smooth (0 points). Echogenic foci: None or large comet-tail artifacts (0 points) Recommendation: If >1.5cm: FNA; If >1cm: Follow up at 1,2, 3,5 years ISTHMUS: # of nodules measured in the isthmus: 0 Bilateral neck scanned, no evidence of lymphadenopathy. IMPRESSION: Thyroid nodules and a criteria for follow-up. TI-RADS assessment score and recommendation for follow-up based on appropriate scoring and treatment protocols. TR1 Benign No FNA TR2 Not suspicious No FNA TR3: If nodule size is ? 2.5 cm, FNA is recommended. If nodule size is ? 1.5 cm, follow-up imaging at 1, 3, and 5 years is recommended. TR4: If nodule size is ? 1.5 cm, FNA is recommended. If nodule size is ? 1.0 cm, follow-up imaging at 1, 2, 3, and 5 years is recommended. TR5: If nodule size is ? 1.0 cm, FNA is recommended. If nodule size is ? 0.5 cm, annual follow-up for up to 5 years is recommended. TR 1 thyroid nodules have a 0.3 % risk of malignancy. TR 2 thyroid nodules have a 1.5 % risk of malignancy. TR 3 thyroid nodules have a 4.8 % risk of malignancy. TR 4 thyroid nodules have a 9.1 % risk of malignancy. TR 5 thyroid nodules have a 35 % risk of malignancy. [email or web address] [facility], , 03/20/2025 1:20 PM
--- NOTE | 2025-03-20 13:30 | MM ---
Reason for Exam: Screening (asymptomatic). Last screening mammogram was performed 12 month(s) ago. Patient History: Menarche at age 13. First Full-Term at age 21. Postmenopausal. 2004, Bilateral Reduction. Excisional Biopsy on the Right side. Maternal grandmother had breast cancer. Niece had breast cancer, age 21. Risk Values: Karen 5 year model risk: 1.5%. NCI Lifetime model risk: 7.9%. Prior Study Comparison: 08/14/2020 Bilateral MG 3D screening mammo w/cad, [facility]. 02/15/2023 Bilateral MG 3D screening mammo w/cad, [facility]. 03/07/2024 Bilateral MG 3D screening mammo w/cad, [facility]. Tissue Density: The breasts are almost entirely fatty. Findings: Analyzed By CAD. There is no suspicious group of microcalcifications or new suspicious mass in either breast. Overall Assessment: Negative, BI-RAD 1 Management: Screening Mammogram of both breasts in 1 year. . Patient should continue monthly self-breast exams. A clinical breast exam by your physician is recommended on an annual basis. This exam should not preclude additional follow-up of suspicious palpable abnormalities. Note on Karen scores and lifetime risk: 1. A Karen score greater than 3% is considered moderate risk. If this is the case, consider specialist referral to assess eligibility for a risk reducing agent. 2. If overall lifetime risk for the development of breast cancer is 20% or higher, the patient may qualify for future screening with alternating mammogram and breast MRI. [facility], , 03/20/2025 1:28 PM. Electronically signed and approved by: Mike Franco M.D. Radiologis
--- NOTE | 2025-03-20 13:54 | CTL ---
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 TECHNIQUE: Low dose computed tomography scan was performed through the chest at 1 mm thick sections a nd reconstructed images in multiple planes at 1 mm and [address] DLP: [address] CTDI: 2.4 mGy Automated exposure control for dose reduction was used. CT DIAGNOSTIC QUALITY: Satisfactory Findings: There are a few stable scattered sub-5 mm nodules. There is no lung consolidation. There are jess small localized scattered areas of reticulation consistent with chronic interstitia l scarring. There is no pleural effusion or pneumothorax. There is 4 cm dilatation of the ascending thoracic aorta. There is no mediastinal, hilar or axillary adenopathy.. Limited scanning through the upper abdomen reveals no gross abnormality. There are no focal osseous lesions. IMPRESSION: 1. Lung RADS category 2 benign. Continue routine screening at yearly intervals. 2. No acute cardiopulmonary disease. Mild stable catheter chronic interstitial changes. 3. 4 cm ascending thoracic aorta. [facility], , 03/20/2025 1:52 PM
== END | disposition home or self-care (01) ==
LOC: RADUSWWP 12:10
PROVIDERS: ATTEND Nurse Practitioner Family
DX: Z12.31 Encounter for screening mammogram for malignant neoplasm of breast (principal); Z12.2 Encounter for screening for malignant neoplasm of respiratory organs; E04.2 Nontoxic multinodular goiter; R92.313 Mammographic fatty tissue density, bilateral breasts; J84.89 Other specified interstitial pulmonary diseases; Z78.0 Asymptomatic menopausal state; Z80.3 Family history of malignant neoplasm of breast; Z87.891 Personal history of nicotine dependence
CPT/HCPCS: 71271; 76536; 77063; 77067